=== PATIENT | male | born 1960 ===

== ENCOUNTER 2021-05-17 20:00 | Outpatient (CLI) | payer SELFPAY | END 2021-05-17 20:01 | disposition home or self-care (01) | LOC: SLEEP 05-18 05:30 | PROVIDERS: Visit Provider Family Medicine | DX: G47.33 Obstructive sleep apnea (adult) (pediatric) (principal); M21.371 Foot drop, right foot | CPT/HCPCS: 95810 ==

== ENCOUNTER 2021-07-05 20:00 | Outpatient (CLI) | payer SELFPAY | END 2021-07-05 20:01 | disposition home or self-care (01) | LOC: SLEEP 07-06 08:59 | PROVIDERS: Visit Provider Family Medicine | DX: G47.33 Obstructive sleep apnea (adult) (pediatric) (principal) | CPT/HCPCS: 95811 ==